=== PATIENT | female | born 1945 | race Caucasian/White ===

== ENCOUNTER 2020-11-18 11:37 | Outpatient (REF) | payer MEDICARE, SELFPAY ==
[2020-11-18 12:54] LABS: MANUAL DIFF FLAG NO
[2020-11-18 13:06] LABS: Basophils Absolute Auto 0.1 X10*3/uL (0.0-0.2); Basophils Percent Auto 0.7 % (0-2); Eosinophils Absolute Auto 0.4 X10*3/uL (0.0-0.4); Eosinophils Percent Auto 5.7 % (0-4); Hematocrit 41.3 % (37-47); Imm Gran Abs Auto 0.03 X10*3/uL (0.00-0.03); Imm Gran Pct Auto 0.4 % (0.0-0.4); Lymphocytes Absolute Auto 2.5 X10*3/uL (1.2-4.9); Lymphocytes Percent Auto 35.1 % (20-40); Mean Corpuscular HGB Conc 31.5 g/dl (31.0-35.0); Mean Corpuscular Hemoglobin 29.5 pg (27.0-33.0); Mean Corpuscular Volume 93.9 fL (80-98); Mean Platelet Volume 10.8 fL (9.4-12.3); Monocytes Absolute Auto 0.6 X10*3/uL (0.1-1.2); Neutrophils Absolute Auto 3.5 X10*3/uL (2.0-8.3); Neutrophils Percent Auto 50.1 % (45-73); Platelet Count 243 X10*3/uL (160-400); Red Cell Distribution Width 14.2 % (11.0-16.0)
[2020-11-18 17:40] LABS: Estimated Average Glucose 286 mg/dL; Hemoglobin A1c % 11.6 %
[2020-11-18 18:26] LABS: Alanine Aminotransferase 76 U/L (0-31); Alkaline Phosphatase 90 U/L (39-117); Anion Gap 21 (12-20); Aspartate Amino Transferase 68 U/L (5-31); Bilirubin Total 0.7 mg/dL (0.0-1.0); Blood Urea Nitrogen 15 mg/dL (9-16); Calcium 9.2 mg/dL (8.4-10.2); Carbon Dioxide 19 mmol/L (22-29); Chloride 101 mmol/L (96-108); Cholesterol 133 mg/dL; Estimated Glomerular Filt Rate 32; Glucose Random 405 mg/dL (60-115); HDL Cholesterol 39 mg/dL; LDL Cholesterol Calculated 49 mg/dl; Potassium 4.2 mmol/L (3.3-5.1); Sodium 137 mmol/L (135-145); Total Protein 6.6 g/dL (6.5-8.0); Triglycerides 226 mg/dL
== END 2020-11-18 11:38 | disposition home or self-care (01) ==
LOC: HO.MANLDS 11:37
PROVIDERS: PCP Internal Medicine; Visit Provider Physician Assistant
DX: E78.00 Pure hypercholesterolemia, unspecified (principal); E11.9 Type 2 diabetes mellitus without complications
CPT/HCPCS: 36415; 80053; 80061; 83036; 85025

== ENCOUNTER 2021-01-12 12:11 | Outpatient (REF) | payer MEDICARE, SELFPAY | END 2021-01-12 12:12 | disposition home or self-care (01) | LOC: HO.MANLDS 12:11 | PROVIDERS: PCP Internal Medicine; Visit Provider Internal Medicine | DX: N39.0 Urinary tract infection, site not specified (principal) | CPT/HCPCS: 87086 ==